=== PATIENT | female | born 1955 | race Caucasian/White ===

== ENCOUNTER 2016-05-28 07:44 | Inpatient (IN) ==
--- NOTE | 2016-05-23 21:33 | Discharge Summary ---
<NayTori ospinaLesley L - Last Filed: 05/25/16 21:32> - Discharge Diagnosis (1) Instability of knee joint Priority: Primary Status: Acute Qualifiers: Laterality: right Qualified Code(s): M25.361 - Other instability, right knee (2) Lymphedema Priority: Secondary Status: Chronic (3) Hypertension Priority: Secondary Status: Chronic Qualifiers: Hypertension type: essential hypertension Qualified Code(s): I10 - Essential (primary) hypertension (4) Sleep apnea Priority: Secondary Status: Chronic Qualifiers: Sleep apnea type: unspecified type Qualified Code(s): G47.30 - Sleep apnea , unspecified (5) Obesity Priority: Secondary Status: Chronic Qualifiers: Obesity type: unspecified obesity type Obesity severity: morbid Qualified Code(s): E66.01 - Morbid (severe) obesity due to excess calories (6) Diastolic heart failure Priority: Secondary Status: Chronic Qualifiers: Heart failure chronicity: chronic Qualified Code(s): I50.32 - Chronic diastolic (congestive) heart failure (7) HLD (hyperlipidemia) Priority: Secondary Status: Chronic Qualifiers: Hyperlipidemia type: unspecified Qualified Code(s): E78.5 - Hyperlipidemia , unspecified - Discharge Medications Prescriptions: Doxycycline 100 mg PO BID #30 capsule Home Medications: Venlafaxine HCl [Effexor Xr] 75 mg PO 1200 01/14/16 [History] Aspirin Enteric Coated [Aspirin EC] 325 mg PO Q12H #30 tablet. 05/25/16 [Rx] OxyCODONE Immed Rel [Roxicodone 5 MG] 5 - 10 mg PO Q6HR PRN #40 tablet 05/25/16 [Rx] Diclofenac Sodium [Voltaren] 100 mg PO BID 05/28/16 [History] Furosemide [Lasix] 40 mg PO BID 05/28/16 [History] Gabapentin [Neurontin] 1,200 mg PO BID 05/28/16 [History] Gabapentin [Neurontin] 600 mg PO 1200 05/28/16 [History] Lansoprazole [Prevacid] 30 mg PO DAILY 05/28/16 [History] Oxycodone HCl/Acetaminophen [Percocet 7.5-325 mg Tablet] 1 each PO TID PRN 05/28 [History] Potassium Chloride [K-Tab ER] 20 meq PO Q48H 05/28/16 [History] Pravastatin Sodium [Pravachol] 40 mg PO QPM 05/28/16 [History] Tizanidine HCl 4 mg PO Q8H PRN 05/28/16 [History] Venlafaxine XR (24 HR) [Effexor Xr] 150 mg PO DAILY 05/28/16 [History] Doxycycline 100 mg PO BID #30 capsule 05/30/16 [Rx] Allergies/Adverse Reactions: Allergies No Known Allergies Allergy (Verified 05/28/16 09:02) Primary care physician: Yusef Jauregui MD - Patient Status Disposition: Home, Self-Care Condition: Good - Discharge Instructions Follow Up With: Yusef Jauregui MD [Primary Care Provider] - - Hospital Course Hospital course: Ms. Shaffer is a 61 year old female - Time Spent with Patient Total time spent providing and/or coordinating discharge services: <Venancio Jorge - Last Filed: 05/30/16 06:19> Date of Encounter: 05/30/16 Time of Encounter: 06:19 - Discharge Diagnosis (1) Hypertension Priority: Secondary Status: Chronic Qualifiers: Hypertension type: essential hypertension Qualified Code(s): I10 - Essential (primary) hypertension (2) Sleep apnea Priority: Secondary Status: Chronic Qualifiers: Sleep apnea type: unspecified type Qualified Code(s): G47.30 - Sleep apnea , unspecified (3) Obesity Priority: Secondary Status: Chronic Qualifiers: Obesity type: unspecified obesity type Obesity severity: morbid Qualified Code(s): E66.01 - Morbid (severe) obesity due to excess calories (4) Diastolic heart failure Priority: Secondary Status: Chronic Qualifiers: Heart failure chronicity: chronic Qualified Code(s): I50.32 - Chronic diastolic (congestive) heart failure (5) HLD (hyperlipidemia) Priority: Secondary Status: Chronic Qualifiers: Hyperlipidemia type: unspecified Qualified Code(s): E78.5 - Hyperlipidemia , unspecified (6) Instability of knee joint Priority: Primary Status: Acute Qualifiers: Laterality: right Qualified Code(s): M25.361 - Other instability, right knee (7) Acute blood loss anemia Priority: Primary Status: Acute Primary care physician: Yusef Jauregui MD - Patient Status Functional capacity at discharge: uses cane/walker Overall status at discharge: patient is progressing back to baseline - Hospital Course Hospital course: Ms. Shaffer is a 61 year old female The patient had an uneventful postoperative course. They received antibiotics and physical therapy and were discharged in stable condition. There will follow -up in the office in 2 weeks. Aspirin DVT prophylaxis - Time Spent with Patient Total time spent providing and/or coordinating discharge services:
--- NOTE | 2016-05-28 07:54 | History & Physical Report ---
Date of Encounter: 05/28/16 Time of Encounter: 07:53 24 Hour HP Update - Instructions Instructions: If the History and Physical is less than 30 days old and was completed prior to A.M. admission and or procedure and has NOT been updated on calendar day of procedure please complete this update prior to performing procedure. - Update Patient reports changes in Medical Condition: No Changes in assessment/condition: No Changes in Medication: No Preop tests/diagnostics Reviewed: Yes Surgery Remains Indicated: Yes Consent for Planned Operative Procedure(s) Verified: Yes - Pre-Operative Checklist Preoperative Checklist Indicated: No Prophylactic Antibiotic Ordered: Yes Is VTE Prophylaxis Indicated?: Yes
[2016-05-28] MEDS ORDERED: CeFAZolin Pre 2,000 MG/100 ML 2,000 MG/100 ML BAG IVPB ONE (09:00)
[2016-05-28] MEDS ORDERED: Famotidine 20 MG/2 ML VIAL IVP ONE (09:22)
--- NOTE | 2016-05-28 09:25 | Anesthesia Evaluation PreOp ---
Date of Encounter: 05/28/16 Time of Encounter: 09:25 - Past History Planned Operation: Rt TKA Revision Cardiac History: HTN, Hyperlipidemia Pulmonary History: Denies Any Significant HX DISH ROOM WORKER History: Other (Fibromyalgia) Other Medical History: Denies Any Significant HX Anesthesia History: No Prior Anesthetic Complications : No Alcohol Use: none Drug use: none Medications and Allergies Venlafaxine HCl [Effexor Xr] 75 mg PO 1200 01/14/16 [History] Aspirin Enteric Coated [Aspirin EC] 325 mg PO Q12H #30 tablet. 05/25/16 [Rx] OxyCODONE Immed Rel [Roxicodone 5 MG] 5 - 10 mg PO Q6HR PRN #40 tablet 05/25/16 [Rx] Diclofenac Sodium [Voltaren] 100 mg PO BID 05/28/16 [History] Furosemide [Lasix] 40 mg PO BID 05/28/16 [History] Gabapentin [Neurontin] 1,200 mg PO BID 05/28/16 [History] Gabapentin [Neurontin] 600 mg PO 1200 05/28/16 [History] Lansoprazole [Prevacid] 30 mg PO DAILY 05/28/16 [History] Oxycodone HCl/Acetaminophen [Percocet 7.5-325 mg Tablet] 1 each PO TID PRN 05/28 [History] Potassium Chloride [K-Tab ER] 20 meq PO Q48H 05/28/16 [History] Pravastatin Sodium [Pravachol] 40 mg PO QPM 05/28/16 [History] Tizanidine HCl 4 mg PO Q8H PRN 05/28/16 [History] Venlafaxine XR (24 HR) [Effexor XR] 150 mg PO DAILY 05/28/16 [History] Allergies No Known Allergies Allergy (Verified 05/28/16 09:02) - Meds/Allergy Pre-op Review Medications Reviewed: Yes Allergies Reviewed: Yes Beta Blockers on Current Med List: No Anesthesia Results - Labs Laboratory Tests 05/23/16 05/23/16 13:26 13:26 Hgb 9.5 L Hct 32.7 L Plt Count 299 Sodium 139 Potassium 3.7 BUN 22 H Creatinine 0.72 - Imaging EKG: report reviewed (SR First Degree Block) Anesthesia Exam O2 Sat Height 1.68 m Height 1.68 m Height 1.68 m Weight 111.584 kg Weight 111.584 kg Weight 111.584 kg O2 Sat by Pulse Oximetry 100 O2 Sat by Pulse Oximetry 100 Vital Signs Temp Pulse Resp BP Pulse Ox 98.2 F 77 18 149/79 100 05/28/16 08:07 05/28/16 08:07 05/28/16 08:07 05/28/16 08:07 05/28/16 08:07 Height: 5'6 Weight: 246 lbs NPO (# of Hours): MN Pain Scale: 0 - HEENT Pupil (Motor): Pupils equal, EOMI Mallampati: II Teeth: Edentulous Oral Opening: Less than or equal to 3 - DISH ROOM WORKER LOC: Oriented DISH ROOM WORKER Motor: Normal RUE, Normal LUE, Normal RLE, Normal LLE, Normal Face DISH ROOM WORKER Sensory: Normal: RUE, LUE, RLE, LLE, Face - Cardiac Rhythm: Regular Murmur: None JVD: No Carotid Bruit: No - Pulmonary Breath Sounds: bilateral Clear Respiratory Effort: Symmetrical Anesthesia Assess/Plan ASA Score: 2 Modified [place] Scale for Level of Consciousness: Cooperative, oriented, and tranquil Anesthetic Plan: General, Regional Monitoring Plan: Standard Monitors Recovery Plan: PACU (Discussed GA and RA, agrees to proceed)
[2016-05-28] MEDS ORDERED: ROPIVACAINE HCL/PF 0.5% 30 ML VIAL ONE (09:31)
[2016-05-28] MEDS ORDERED: Bupivacaine/Clonidine Syringe 1 EACH SYRINGE ONE (09:32)
[2016-05-28] MEDS ORDERED: Tetracaine/PF 20 MG/2 ML AMPUL SPINA ONE (09:32)
[2016-05-28] MEDS ORDERED: Acetaminophen IV 1,000 MG/100 ML INFUS..BTL ONE (10:23)
[2016-05-28] MEDS ORDERED: *HR* Labetalol 100 MG/20 ML MDV IVP PRN (10:37)
[2016-05-28] MEDS ORDERED: Ondansetron 4 MG/2 ML VIAL IVP PRN ×2 (10:37→12:53)
--- NOTE | 2016-05-28 10:42 | Anesthesia Procedures ---
Date of Encounter: 05/28/16 Time of Encounter: 09:55 Procedures: Anesthesia - Nerve Block Procedure Date: 05/28/16 Time: 09:55 Allergies/Adv Reactions: nkda Pre-op Diagnosis: R painful and unstable total knee Surgical Procedure: R TKA--revision Checklist: Correct Patient Identifier, Correct procedure, History checked Correct side: Right Blood Thinner: No Monitor Applied: EKG, BP, Pulse Oximetry Supplemental Oxygen via Nasal Cannula (L/min): 4 Sedation: Versed (mg): 3 Sedation: Fentanyl (mcg): 100 Indication: Post Op Analgesia (requested by Dr. Jorge) Pre-op Neuro Deficits: No Block Type: Femoral, Other (I-PACK) Catheter placed: No Sterile Technique: Yes Ultrasound used: Yes Anatomy identified: Yes Visual spread of Local: Yes Neuro Stimulation: Yes Nerve Stimulator Range: 0.2 - 0.4 mA Blood on Needle Aspiration: No Smooth Injection of Local: Yes Pain with Injection of Local: No Prep: Chlorhexadine Needle: 22 x 50 mm Stimuplex (for femoral n. block), 21 x 100 mm Stimuplex (for I-PACK block) Local: 0.25% Bupivicaine w/Clonidine 20 mcg/cc (20mL), Tetracaine (1%--2mL), Ropivacaine (0.5%--30mL) Number of Attempts: 1 Complications: None/effective block, Bleeding at site (for I-PACK block) Vitals: 3 Vital Signs Time pre-procedure post-procedure BP 149/79 160/78 Pulse 77 85 Resp 17 14 O2 Sat 97 99
[2016-05-28] MEDS ORDERED: Lidocaine -MPF 2% 2 ML VIAL ONE (10:45)
[2016-05-28] MEDS ORDERED: *HR* Succinylcholine 200 MG/10 ML VIAL IVP ONE (10:45)
[2016-05-28] MEDS ORDERED: *HR* Midazolam HCl 2 MG/2 ML VIAL ONE ×2 (10:45)
[2016-05-28] MEDS ORDERED: *HR* Propofol 200 MG/20 ML VIAL IVP ONE (10:45)
[2016-05-28] MEDS ORDERED: *HR* FentaNYL (PF) 100 MCG/2 ML VIAL ONE (10:45)
[2016-05-28] MEDS ORDERED: Ondansetron 4 MG/2 ML VIAL ONE (10:49)
[2016-05-28] MEDS ORDERED: Dexamethasone 4 MG/ML VIAL ONE (10:49)
--- NOTE | 2016-05-28 11:01 | Orthopedic Operative Note ---
Date of procedure: 05/28/16 Pre-op diagnosis: Unstable right total knee replacement, aseptic loosening tibia Post-op diagnosis: same Procedure: Procedure: Right revision total knee Estimated blood loss: 1000 mL Hardware: Biomet SS K 55 left femur 16 x 120 stem, 67 stem tibia, 13 x 1 20 stem. 24 constrained Danielle, Exam Under anesthesia: Full extension and flexion to 90 degrees significant varus valgus instability Procedural Notes: Unstable total knee, aseptic loosening tibia. Operative procedure: The patient was brought to the operating room and placed on the operating room table. After general anesthesia was administered the operative knee was examined. Findings were noted in the exam under anesthesia. The operative extremity was prepped and draped in sterile surgical fashion. The patient received IV antibiotics prior to skin incision. A standard midline incision was made centered over the patella through the old incision. The incision was made through the skin and subcutaneous tissue. A medial parapatellar tendon approach was performed. Care was taken to preserve tissue along the medial aspect of the patella. And to protect the patella tendon. The deep MCL was released off the medial tibia. The infra patella fat pad was excised. Fluid was encountered this was normal joint fluid, Cultures were obtained and gram . The knee was brought into flexion the poly-was removed. The interface between the patient's femoral component and distal femur were disrupted with a osteotome and oscillating saw. Femoral component was removed removed without significant bone loss. Attention was then turned to the tibial component. The same technique was used to remove the tibial component by disrupting the interface between the patient's tibial component and the patients proximal tibia. The tibial component was grossly loose, was removed without significant bone loss. The tibia was sized to a 55 it was reamed up to a 16 x 120. Trial had good fit and fixation. The femur was sized to a 67, was reamed up to a 13 x 120. The finishing guide was seated and the box cut was made. The trial had good fit and fixation. Both trial components were seated and the 24 constrained Danielle was seated and secured. The knee had full flexion and full extension with no instability. The patella had excellent patella tracking. The trial components were removed. The knee sat for 2 minutes with a Betadine saline solution. It was irrigated out with 2 L of pulse irrigation. The components were assembled on the back table, the tibia cemented first followed by the femur. The 24 constrained liner was seated and secure. The knee was brought to full extension while the cement hardened. The patella was cemented and held in place with patellar holding clamp. After the cement hardened the knee was irrigated out again. The extensor mechanism was closed with a running #2 Fiberwire suture and a running #2 PDS suture. The deep tissue was irrigated and closed deep with #1 PDS suture superficially with 0 PDS suture. The skin was closed with skin antonio. The patient was placed in a sterile dressing and postoperative brace. They were extubated and transferred to recovery room in stable condition. Anesthesia: GETA Surgeon: Venancio Jorge Knurling Machine Operator: Lesley Luis Condition: stable Disposition: PACU
[2016-05-28] MEDS ORDERED: *HR* Morphine 10 MG/ML VIAL ONE (11:19)
[2016-05-28] MEDS ORDERED: Ketorolac 30 MG/ML VIAL ONE (11:21)
[2016-05-28 11:22] LABS: Hematocrit 30.8 % (35.3-44.9); Hemoglobin 9.5 g/dL (11.5-15.4)
[2016-05-28] MEDS ORDERED: Ringers Solution, Lactated 1,000 ML IVC SCH (11:34)
[2016-05-28] MEDS: *HR* HYDROmorphone (PF) 1 MG/ML SYRINGE IVP PRN ×5 (11:42→13:28)
[2016-05-28] MEDS ORDERED: Ringers Solution, Lactated 1,000 ML ONE (12:05)
--- NOTE | 2016-05-28 12:34 | Anesthesia Evaluation Post Op ---
Date of Encounter: 05/28/16 Time of Encounter: 12:30 - Vital Signs Vital Signs: Vital Signs/O2 Sat/Glucose, Most Current Temp Pulse Resp BP Pulse Ox 05/28/16 12:14 83 16 145/77 100 05/28/16 12:04 97.8 F 85 16 153/89 99 05/28/16 11:54 83 18 137/80 100 05/28/16 11:44 92 18 139/81 99 05/28/16 11:34 98.2 F 102 20 139/86 95 05/28/16 09:46 79 16 160/78 97 05/28/16 09:06 98.2 F 77 18 149/79 100 - Lungs Lungs: Clear Ascult./Percussion - Airway Airway: Non-obstructed - Cardiovascular Regular Rate - Mental Status Mental Status: Alert & Oriented, Answers Appropriately - Pain Pain Scale: 0 - Nausea Vomiting Nausea Vomiting: Not Present - Hydration Hydration: Tolerates oral liquids - Discharge PostOp Status: Transfer Patient to floor
[2016-05-28 12:43] LABS: Hematocrit 31.7 % (35.3-44.9); Hemoglobin 9.4 g/dL (11.5-15.4)
[2016-05-28] MEDS ORDERED: Sennosides 8.6 MG TABLET PO PRN (12:53)
[2016-05-28] MEDS ORDERED: Acetaminophen 325 MG TABLET PO PRN (12:53)
[2016-05-28] MEDS ORDERED: *HR* OxyCODONE Immed Rel 5 MG TABLET PO PRN (12:53)
[2016-05-28] MEDS ORDERED: Temazepam 15 MG CAPSULE PO PRN (12:53)
[2016-05-28] MEDS ORDERED: tiZANidine 4 MG TABLET PO PRN (12:53)
[2016-05-28] MEDS ORDERED: Naloxone 0.4 MG/ML INJ IVP PRN (12:53)
[2016-05-28] MEDS ORDERED: MOM Conc 10 ML UD.LIQ PO PRN (12:53)
[2016-05-28] MEDS: Venlafaxine XR (24 HR) 75 MG CAP.ER.24H PO SCH (13:28)
[2016-05-28] MEDS: Gabapentin 300 MG CAPSULE PO SCH (13:28)
[2016-05-28] MEDS: ceFAZolin 2,000 MG in D5% in Water 100 ML IVPB SCH (17:40)
[2016-05-28] MEDS: *HR* Enoxaparin 30 MG/0.3 ML SYRINGE SQ SCH (17:41)
[2016-05-28] MEDS ORDERED: *HR* Enoxaparin 30 MG/0.3 ML SYRINGE SQ SCH (18:00)
[2016-05-28] MEDS: *HR* OxyCODONE Immed Rel 5 MG TABLET PO PRN (21:11)
[2016-05-28] MEDS: Furosemide 40 MG TABLET PO SCH (21:12)
[2016-05-28] MEDS: Gabapentin 400 MG CAPSULE PO SCH (21:12)
[2016-05-29] MEDS: ceFAZolin 2,000 MG in D5% in Water 100 ML IVPB SCH (00:47)
[2016-05-29 05:48] LABS: Hematocrit 25.8 % (35.3-44.9)
[2016-05-29] MEDS: *HR* Enoxaparin 30 MG/0.3 ML SYRINGE SQ SCH ×2 (05:50→16:45)
[2016-05-29 05:55] LABS: Hemoglobin 7.6 g/dL (11.5-15.4)
[2016-05-29 06:02] LABS: BUN/Creatinine Ratio 22 (6-26); Blood Urea Nitrogen 14 mg/dL (7-20); Calcium 8.1 mg/dL (8.6-10.8); Carbon Dioxide 28 mEq/L (19-29); Chloride 105 mEq/L (98-109); Glucose 127 mg/dL (70-99); Osmolality,Calculated 294 (280-300); Potassium 3.9 mEq/L (3.5-4.5); Sodium 141 mEq/L (136-145); eGFR For African Americans > 60 (> 60); eGFR For Non-African Americans > 60 (> 60)
--- NOTE | 2016-05-29 08:22 | Orthopedics Progress Note ---
Date of Encounter: 05/29/16 Time of Encounter: 08:22 - Assessment and Plan (1) Hypertension Current Visit: No Status: Chronic Qualifiers: Hypertension type: essential hypertension Qualified Code(s): I10 - Essential (primary) hypertension (2) Sleep apnea Current Visit: No Status: Chronic Qualifiers: Sleep apnea type: unspecified type Qualified Code(s): G47.30 - Sleep apnea , unspecified (3) Obesity Current Visit: No Status: Chronic Qualifiers: Obesity type: unspecified obesity type Obesity severity: morbid Qualified Code(s): E66.01 - Morbid (severe) obesity due to excess calories (4) Diastolic heart failure Current Visit: No Status: Chronic Qualifiers: Heart failure chronicity: chronic Qualified Code(s): I50.32 - Chronic diastolic (congestive) heart failure (5) HLD (hyperlipidemia) Current Visit: No Status: Chronic Qualifiers: Hyperlipidemia type: unspecified Qualified Code(s): E78.5 - Hyperlipidemia , unspecified (6) Instability of knee joint Current Visit: Yes Status: Acute Qualifiers: Laterality: right Qualified Code(s): M25.361 - Other instability, right knee Subjective Interval history: Patient was seen this morning doing well without complaints. Afebrile vital signs stable. Operative extremity: Neurovascularly intact Dressing clean dry and intact Calves nontender Assessment and plan: Continue with postoperative care Hematocrit 25, transfuse 2 units Objective Vital signs: Vital Signs Temp Pulse Resp BP Pulse Ox 05/29/16 06:34 98.3 F 76 16 117/73 94 L 05/29/16 05:00 98.0 F 81 15 115/69 92 L 05/29/16 01:31 98.1 F 76 17 131/72 94 L 05/28/16 21:15 98 05/28/16 19:33 98.0 F 77 16 112/70 97 05/28/16 16:20 98.4 F 79 16 142/82 95 05/28/16 14:00 97.8 F 75 14 132/80 93 L 05/28/16 13:30 97.9 F 73 14 124/74 94 L 05/28/16 13:00 97.7 F 97 16 128/78 99 05/28/16 12:24 97.8 F 88 16 141/76 98 05/28/16 12:14 83 16 145/77 100 05/28/16 12:04 97.8 F 85 16 153/89 99 05/28/16 11:54 83 18 137/80 100 05/28/16 11:44 92 18 139/81 99 05/28/16 11:34 98.2 F 102 20 139/86 95 05/28/16 09:46 79 16 160/78 97 05/28/16 09:06 98.2 F 77 18 149/79 100 Intake and Output 05/28/16 05/29/16 05/29/16 23:59 07:59 15:59 Intake Total 100 / 100 Balance 100 / 100 Intake: IV Fluids 100 / 100 Ancef 2,000 MG In 100 / 100 Dextrose 5% 100 ML @ 200 mls/hr IVPB Q8HR [facility] Rx#: [id number] - Labs CBC & BMP: 05/29/16 05:25 05/29/16 05:25 Labs: Abnormal lab results Hgb 7.6 g/dL (11.5-15.4) L D 05/29/16 05:25 Hct 25.8 % (35.3-44.9) L 05/29/16 05:25 Glucose 127 mg/dL (70-99) H 05/29/16 05:25 Calcium 8.1 mg/dL (8.6-10.8) L 05/29/16 05:25 - VTE Documentation of Mechanical Device: Venous foot pump, device Consult Discharge Plan - Plan Referrals: Yusef Jauregui MD [Primary Care Provider] -
[2016-05-29] MEDS ORDERED: Furosemide 20 MG/2 ML VIAL IVP ONE (08:34)
[2016-05-29] MEDS ORDERED: 0.9 % Sodium Chloride 500 ML ONE (08:57)
[2016-05-29] MEDS: Furosemide 40 MG TABLET PO SCH ×2 (09:07→20:46)
[2016-05-29] MEDS: Venlafaxine XR (24 HR) 150 MG CAP.ER.24H PO SCH (09:14)
[2016-05-29] MEDS: *HR* OxyCODONE Immed Rel 5 MG TABLET PO PRN ×2 (09:15→14:17)
[2016-05-29] MEDS: Gabapentin 400 MG CAPSULE PO SCH ×2 (09:15→20:46)
[2016-05-29] MEDS ORDERED: 0.9 % Sodium Chloride 250 ML ONE (11:41)
[2016-05-29] MEDS: Venlafaxine XR (24 HR) 75 MG CAP.ER.24H PO SCH (12:01)
[2016-05-29] MEDS: Gabapentin 300 MG CAPSULE PO SCH (12:02)
[2016-05-29] MEDS: *HR* HYDROmorphone (PF) 1 MG/ML SYRINGE IVP PRN (16:46)
[2016-05-30 04:56] LABS: Hematocrit 27.2 % (35.3-44.9); Hemoglobin 8.2 g/dL (11.5-15.4)
[2016-05-30 05:16] LABS: BUN/Creatinine Ratio 37 (6-26); Blood Urea Nitrogen 26 mg/dL (7-20); Calcium 8.4 mg/dL (8.6-10.8); Carbon Dioxide 32 mEq/L (19-29); Chloride 105 mEq/L (98-109); Glucose 97 mg/dL (70-99); Osmolality,Calculated 301 (280-300); Potassium 3.8 mEq/L (3.5-4.5); Sodium 143 mEq/L (136-145); eGFR For African Americans > 60 (> 60); eGFR For Non-African Americans > 60 (> 60)
--- NOTE | 2016-05-30 06:20 | Orthopedics Progress Note ---
Date of Encounter: 05/30/16 Time of Encounter: 06:20 - Assessment and Plan (1) Hypertension Current Visit: No Status: Chronic Qualifiers: Hypertension type: essential hypertension Qualified Code(s): I10 - Essential (primary) hypertension (2) Sleep apnea Current Visit: No Status: Chronic Qualifiers: Sleep apnea type: unspecified type Qualified Code(s): G47.30 - Sleep apnea , unspecified (3) Obesity Current Visit: No Status: Chronic Qualifiers: Obesity type: unspecified obesity type Obesity severity: morbid Qualified Code(s): E66.01 - Morbid (severe) obesity due to excess calories (4) Diastolic heart failure Current Visit: No Status: Chronic Qualifiers: Heart failure chronicity: chronic Qualified Code(s): I50.32 - Chronic diastolic (congestive) heart failure (5) HLD (hyperlipidemia) Current Visit: No Status: Chronic Qualifiers: Hyperlipidemia type: unspecified Qualified Code(s): E78.5 - Hyperlipidemia , unspecified (6) Instability of knee joint Current Visit: Yes Status: Acute Qualifiers: Laterality: right Qualified Code(s): M25.361 - Other instability, right knee (7) Acute blood loss anemia Current Visit: No Status: Acute Subjective Interval history: Patient was seen this morning doing well without complaints. Afebrile vital signs stable. Operative extremity: Neurovascularly intact Dressing clean dry and intact Calves nontender Assessment and plan: Continue with postoperative care Hemoglobin 8.2 discharged today Objective Vital signs: Vital Signs Temp Pulse Resp BP Pulse Ox 05/30/16 01:47 98.0 F 77 16 116/66 93 L 05/29/16 14:27 98.4 F 96 18 137/81 96 05/29/16 14:16 98.6 F 100 16 146/77 90 L 05/29/16 11:52 98.2 F 16 126/68 98 05/29/16 09:26 98.1 F 91 16 113/70 97 05/29/16 09:24 98 05/29/16 09:11 98.1 F 90 16 148/75 95 05/29/16 06:34 98.3 F 76 16 117/73 94 L Intake and Output 05/29/16 05/29/16 05/30/16 15:59 23:59 07:59 Intake Total 840 / 840 450 / 450 Output Total 600 / 600 350 / 350 Balance 240 / 240 100 / 100 Intake: Oral 240 / 240 450 / 450 Blood Product 600 / 600 Rbcs Leuko Poor As-1 300 / 300 Unit [id number] Rbcs Leuko Poor As-3 Ph 300 / 300 Unit [id number] Output: Urine 600 / 600 350 / 350 Other: Meal Breakfast Percent of Meal Consumed 100% - Labs CBC & BMP: 05/30/16 04:38 05/30/16 04:38 Labs: Abnormal lab results Hgb 8.2 g/dL (11.5-15.4) L 05/30/16 04:38 Hct 27.2 % (35.3-44.9) L 05/30/16 04:38 Carbon Dioxide 32 mEq/L (19-29) H 05/30/16 04:38 BUN 26 mg/dL (7-20) H D 05/30/16 04:38 BUN/Creatinine Ratio 37 (6-26) H 05/30/16 04:38 Calculated Osmolality 301 (280-300) H 05/30/16 04:38 Calcium 8.4 mg/dL (8.6-10.8) L 05/30/16 04:38 - VTE Documentation of Mechanical Device: Venous foot pump, device Consult Discharge Plan - Plan Referrals: Yusef Jauregui MD [Primary Care Provider] - Prescriptions: Doxycycline 100 mg PO BID #30 capsule
[2016-05-30] MEDS: *HR* Enoxaparin 30 MG/0.3 ML SYRINGE SQ SCH ×2 (06:25→17:52)
[2016-05-30] MEDS: *HR* OxyCODONE Immed Rel 5 MG TABLET PO PRN ×2 (09:35→20:25)
[2016-05-30] MEDS: Gabapentin 400 MG CAPSULE PO SCH ×2 (09:36→20:22)
[2016-05-30] MEDS: Venlafaxine XR (24 HR) 150 MG CAP.ER.24H PO SCH (09:37)
[2016-05-30] MEDS: Furosemide 40 MG TABLET PO SCH ×2 (09:37→20:22)
[2016-05-30] MEDS: Gabapentin 300 MG CAPSULE PO SCH (12:13)
[2016-05-30] MEDS: Venlafaxine XR (24 HR) 75 MG CAP.ER.24H PO SCH (12:13)
[2016-05-31] MEDS: *HR* Enoxaparin 30 MG/0.3 ML SYRINGE SQ SCH (05:03)
[2016-05-31] MEDS: *HR* OxyCODONE Immed Rel 5 MG TABLET PO PRN ×2 (05:03→09:03)
[2016-05-31 06:53] VITALS: BP 121/77
[2016-05-31] MEDS: Furosemide 40 MG TABLET PO SCH (08:58)
[2016-05-31] MEDS: Venlafaxine XR (24 HR) 150 MG CAP.ER.24H PO SCH (08:58)
[2016-05-31] MEDS: Gabapentin 400 MG CAPSULE PO SCH (09:00)
== END 2016-05-31 13:16 | disposition home or self-care (01) | DRG 467 ==
LOC: SAMDAY 07:44 → 3NENU 12:50
PROVIDERS: ADMIT Orthopaedic Surgery; ATTEND Orthopaedic Surgery